=== PATIENT | male | born 1980 | race Asian ===

== ENCOUNTER 2016-12-13 14:07 | Emergency (ER) | payer OTHER ==
[~2016-12-13] VITALS: Ht 170.2 cm; Wt 62.6 kg
[2016-12-13 14:20] VITALS: BP 143/77
[2016-12-13] MEDS ORDERED: Lidocaine 1% MPF 10mg/ml 5ml IM ONE (15:15)
[2016-12-13] MEDS ORDERED: Bacitracin Oint UD TOPIC ONE (15:15)
--- NOTE | 2016-12-13 15:32 | Diagnostic Imaging Report ---
Indications: Left hand injury with laceration, pain Technique: 3 views left hand. Findings: Comparison: None Soft tissues of the second finger tip are mildly swollen with suggestion of gas. No fracture, dislocation, joint space widening , foreign body, or other acute changes are identified. IMPRESSION: Left second fingertip soft tissue injury with evidence of laceration. No underlying fracture or foreign body.
[2016-12-13] MEDS ORDERED: CEPHALEXIN500 MG ORAL (15:52)
[2016-12-13 16:00] VITALS: BP 135/70
[2016-12-13] MEDS ORDERED: TdaP Vaccine 0.5ml Syr IM ONE (16:00)
--- NOTE | 2016-12-13 23:00 | Emergency Room Report ---
History of Present Illness General Chief Complaint: Laceration Source: Patient Present Illness HPI The pt is a 36 yo M presenting for L index finger pain which occurred at work after accidently getting the finger slammed by a metal door. The pt noticed bleeding and the nail being partially removed. The pain is described as a 5/10 throbbing ache and does not radiate from the finger. No numbness or tingling. No prior injury to the finger. Allergies: Coded Allergies: No Known Allergies (Unverified , 12/13/16) Patient History Past Medical History: see triage record Pertinent Family History: none Reviewed Nursing Documentation: PMH: Agreed, PSxH: Agreed Nursing Documentation-PMH Past Medical History: No Stated History Review of Systems All Other Systems: negative except mentioned in HPI Physical Exam Vital Signs Date Time Temp Pulse Resp B/P Pulse Ox O2 Delivery O2 Flow Rate FiO2 12/13/16 14:20 98.1 62 16 143/77 100 Room Air Sp02 EP Interpretation: reviewed, normal General Appearance: no apparent distress, alert, GCS 15, non-toxic Head: normocephalic, atraumatic ENT: hearing grossly normal, normal pharynx, no angioedema, normal voice Cardiovascular #1: regular rate, rhythm, no edema Musculoskeletal: back normal, normal range of motion, decreased range of motion , tender - Over the L 2nd digit nail Neurologic: alert, oriented x3, responsive, motor strength/tone normal, sensory intact, speech normal Psychiatric: judgement/insight normal, memory normal, mood/affect normal, no suicidal/homicidal ideation Skin: no rash, normal turgor, laceration - 1cm avulsion of nailbed Lymphatic: no adenopathy Procedures Additional Procedure Procedure Narrative Nail removal A digital block was placed with 4 mL of lidocaine without epi. The nail was soaked with water and Betadine. The nail was easily removed which uncovered an avulsion of the nail bed. Minimal bleeding. The wound was cleaned and bacitracin with sterile dressing applied Medical Decision Making PA Attestation Dr. Murphy is my supervising physician. Patient management was discussed with my supervising physician Diagnostic Impression: Primary Impression: Laceration ER Course The pt is a 36 yo M presenting for L index finger pain which occurred at work after accidently getting the finger slammed by a metal door. DDx:laceration, avulsion, subungual hematoma, fracture PE: Vitals WNL. NAD L hand: L index finger nail is partially removed at the base. There is evident bleeding under the nail with subungual hematoma. Full AROM of finger. SILT. Xray unremarkable for fracture, FB, dislocation. A digital block was placed with 4 mL of lidocaine without epi. The nail was soaked with water and Betadine. The nail was easily removed which uncovered an avulsion of the nail bed. Minimal bleeding. The wound was cleaned and bacitracin with sterile dressing applied Pt given TDAP. Pt DC'ed home with prescription for keflex and will FU with worker's compensation. Other X-Ray Diagnostic Results Other X-Ray Diagnostic Results : X-Ray Ordered: L hand Date: Dec 13, 2016 EP Interpretation: Yes Findings: no fractures, no dislocation, no soft tissue swelling Number of Views: 3 PA Scribe Text I'm acting as scribe for my supervising physician. My supervising physician's interpretation of the L hand xrays are there are no fractures, dislocations or soft tissue swelling. Last Vital Signs Date Time Temp Pulse Resp B/P Pulse Ox O2 Delivery O2 Flow Rate FiO2 12/13/16 16:20 98.0 65 16 135/70 100 Room Air Status: improved Disposition: HOME, SELF-CARE Condition: Improved Scripts Cephalexin* (KEFLEX*) 500 Mg Capsule 500 MG ORAL EVERY 12 HOURS, #14 CAP 0 Refills Prov: ESTELA OSULLIVAN 12/13/16 Referrals: NOT CHOSEN IPA/MD,REFERRING (PCP) Patient Instructions: Nonsutured Laceration Care Additional Instructions: I discussed my findings with the patient. All questions and concerns have been answered. Treatment and medication compliance have been addressed. I advised the patient that they need to follow up with PMD in 3-5 days. Return to ED if symptoms worsen, new symptoms arise, or if needed for any reason. Patient verbalized understanding of discharge instructions. ESTELA OSULLIVAN Dec 13, 2016 23:00
== END 2016-12-13 16:45 | disposition home or self-care (01) ==
LOC: EMR 16:05
DX: S61.311A Laceration without foreign body of left index finger with damage to nail, initial encounter (principal); W22.01XA Walked into wall, initial encounter; Y92.511 Restaurant or cafe as the place of occurrence of the external cause; Y99.0 Civilian activity done for income or pay; Z23 Encounter for immunization
CPT/HCPCS: 90471; 90715; 99283